=== PATIENT | male | born 1970 | race Hispanic/Latino ===

== ENCOUNTER 2018-02-08 15:05 | Observation (INO) | payer MEDICARE, OTHER ==
[~2018-02-08] VITALS: Ht 162.6 cm; Wt 215.0 kg
[2018-02-08 16:20] LABS: EOSINOPHILS % (AUTO) 0.7 % (0.0-8.0); HEMATOCRIT 43.5 % (42-54); LYMPHOCYTES % (AUTO) 22.8 % (21.0-51.0); MEAN CORPUSCULAR HEMOGLOBIN 28.4 pg (27.0-33.0); MEAN CORPUSCULAR HGB CONC 34.3 g/dL (32.0-36.0); MEAN CORPUSCULAR VOLUME 82.7 fL (79-99); MONOCYTES % (AUTO) 8.3 % (3.0-13.0); NEUTROPHILS % (AUTO) 67.2 % (40.0-77.0); NUCLEATED RED BLOOD CELLS 0.1 % (0.0-0.19); PLATELET COUNT (AUTO) 230 K/uL (130-400); RED BLOOD CELL COUNT(AUTO) 5.26 MIL/uL (4.50-6.20); RED CELL DISTRIBUTION WIDTH 13.5 % (11.0-15.5); WHITE BLOOD COUNT (AUTO) 8.3 K/uL (4.8-10.8)
[2018-02-08 16:34] LABS: CREATININE 0.7 mg/dL (0.5-1.5)
[2018-02-08 16:35] LABS: INR 1.01 (0.85-1.15); PARTIAL THROMBOPLASTIN TIME 27.8 SEC (26.3-35.5); PROTHROMBIN TIME 10.6 SEC (9.6-11.6)
[2018-02-08 16:42] LABS: ALBUMIN 3.6 g/dL (3.5-5.0); BILIRUBIN,TOTAL 0.8 mg/dL (0.2-1.0); TOTAL PROTEIN, SERUM 7.4 g/dL (6.0-8.3)
[2018-02-08] MEDS ORDERED: ASPIRIN 325 MG TABLET ONE (18:44)
[2018-02-08] MEDS ORDERED: DiphenhydrAMINE HCL 50 MG/ML VIAL ONE (20:40)
[2018-02-09 02:54] VITALS: BP 150/97
[2018-02-09 06:08] LABS: HEMATOCRIT 41.3 % (42-54); MEAN CORPUSCULAR HEMOGLOBIN 28.4 pg (27.0-33.0); MEAN CORPUSCULAR HGB CONC 34.5 g/dL (32.0-36.0); MEAN CORPUSCULAR VOLUME 82.3 fL (79-99); NUCLEATED RED BLOOD CELLS 0.1 % (0.0-0.19); PLATELET COUNT (AUTO) 233 K/uL (130-400); RED BLOOD CELL COUNT(AUTO) 5.01 MIL/uL (4.50-6.20); RED CELL DISTRIBUTION WIDTH 13.6 % (11.0-15.5); WHITE BLOOD COUNT (AUTO) 10.6 K/uL (4.8-10.8)
[2018-02-09 06:16] LABS: INR 1.04 (0.85-1.15); PROTHROMBIN TIME 10.9 SEC (9.6-11.6)
[2018-02-09 06:27] LABS: CREATININE 0.9 mg/dL (0.5-1.5); POTASSIUM 4.2 mmol/L (3.5-5.1)
[2018-02-09 06:30] LABS: HEMOGLOBIN A1C 6.1 % (4.0-6.0)
[2018-02-09 07:34] LABS: BASOPHILS % (MANUAL) 1 % (0-2); EOSINOPHILS % (MANUAL) 1 % (1-6); LYMPHOCYTES % (MANUAL) 33 % (22-44); MONOCYTES % (MANUAL) 8 % (2-9); REACTIVE LYMPHOCYTES 5 % (0-0); SEGMENTED NEUTROPHILS % 52 % (40-70)
[2018-02-09 07:35] LABS: MAN.DIFF COMMENT-IMPRESSION MANUAL DIFFERENTIAL; PLATELET MORPHOLOGY COMMENT ADEQUATE
[2018-02-09 08:00] VITALS: BP 133/75
[2018-02-09] MEDS ORDERED: ASPIRIN 81MG TAB.CHEW PO SCH (09:00)
--- NOTE | 2018-02-09 10:22 | NUR ---
BEDSIDE SWALLOW STUDY COMPLETE. -S/S OF ASPIRATION OBSERVED. RECOMMEND REGULAR DIET WITH THIN LIQUIDS. PATIENT INFORMATION: PATIENT IS A 48 YEAR OLD, MALE REFERRED FOR A BEDSIDE SWALLOW EVALUATION SECONDARY TO A DIAGNOSIS OF TIA. PATIENT ADMITTED TO HOSPITAL WITH DIAGNOSIS OF TIA. PATIENT ALERT AND COOPERATIVE DURING EVALUATION. EVALUATION: PATIENT'S SWALLOW FUNCTION AND EFFICIENCY ARE WITHIN FUNCTIONAL LIMITS. NO SIGNS/SYMPTOMS OF ASPIRATION WERE OBSERVED DURING EVALUATION. PATIENT PRESENTS WITH ADEQUATE ORAL STRENGTH AND COORDINATION, TIMELY PHARYNGEAL RESPONSE TIME, GOOD LARYNGEAL ELEVATION/EXCURSION, AND ADEQUATE AIRWAY PROTECTION. RECOMMENDATIONS: 1. REGULAR DIET 2. THIN LIQUIDS G-CODES: [id number] Addendum: 02/09/[address] [facility] Amended: Links added.
--- NOTE | 2018-02-09 11:11 | NUR ---
SPEECH-LANGUAGE EVALUATION COMPLETE. PATIENT WITH FUNCTIONAL SPEECH AND LANGUAGE SKILLS COMMENSURATE WITH PRE-ADMISSION STATUS. PATIENT INFORMATION: PATIENT IS A 48 YEAR OLD MALE REFERRED FOR A SPEECH AND LANGUAGE EVALUATION SECONDARY TO A DIAGNOSIS OF TIA. PER PATIENT, HE HAD NUMBNESS ON RIGHT SIDE OF FACE WITH BURNING SENSATION RADIATING TOWARDS HIS EYE AND LOSS OF MOTOR FUNCTION WITH SLURRED SPEECH. PATIENT REPORTS SYMPTOMS SUBSIDED WITHIN 4 HOURS OF ONSET ON 02/08/2018. EVALUATION: PATIENT PRESENTS WITH FUNCTIONAL SPEECH AND LANGUAGE SKILLS COMMENSURATE WITH PRE-ADMISSION STATUS. PATIENT IS AAOX3 AND ABLE TO ANSWER QUESTIONS APPROPRIATELY. PATIENT'S SPEECH IS 100% INTELLIGIBLE AND ABLE TO RELAY INFORMATION TO CAREGIVERS/COMMUNICATION PARTNERS. RECOMMENDATIONS: 1. PATIENT PRESENTS WITH FUNCTIONAL SPEECH-LANGUAGE SKILLS, AT THIS TIME. RESULTS OF EVALUATION WERE REVIEWED WITH PATIENT. PATIENT VERBALLY AGREED WITH RECOMMENDATIONS. PLAN AND CARE COORDINATED WITH NURSEMIKEY. G-CODES: [id number] Addendum: 02/09/[address] ANTHONY MALDONADO Amended: Links added.
[2018-02-09 12:00] VITALS: BP 160/89
[2018-02-09 16:00] VITALS: BP 128/79
[2018-02-09] MEDS ORDERED: ACETAMINOPHEN 325 MG TAB PO PRN ×2 (17:15)
[2018-02-09] MEDS ORDERED: HYDROCODONE/ACETAMINOPHEN 5/325 MG TAB PO PRN (17:15)
[2018-02-09 19:33] VITALS: BP 150/89
[2018-02-09 23:42] VITALS: BP 130/78
[2018-02-10 03:28] VITALS: BP 139/96
[2018-02-10 05:55] LABS: MEAN CORPUSCULAR HEMOGLOBIN 28.9 pg (27.0-33.0); MEAN CORPUSCULAR HGB CONC 34.9 g/dL (32.0-36.0); MEAN CORPUSCULAR VOLUME 82.6 fL (79-99); NUCLEATED RED BLOOD CELLS 0.1 % (0.0-0.19); PLATELET COUNT (AUTO) 245 K/uL (130-400); RED BLOOD CELL COUNT(AUTO) 4.96 MIL/uL (4.50-6.20); RED CELL DISTRIBUTION WIDTH 13.6 % (11.0-15.5); WHITE BLOOD COUNT (AUTO) 8.6 K/uL (4.8-10.8)
[2018-02-10 06:05] LABS: CREATININE 0.9 mg/dL (0.5-1.5); POTASSIUM 3.9 mmol/L (3.5-5.1)
[2018-02-10 08:00] VITALS: BP 163/87
[2018-02-10] MEDS ORDERED: ASPIRIN 325 MG TABLET ONE (10:58)
[2018-02-10] MEDS: ENOXAPARIN SODIUM 40 MG/0.4 ML SYRINGE SQ SCH (11:14)
[2018-02-10 12:00] VITALS: BP 146/87
[2018-02-10 16:00] VITALS: BP 158/88
[2018-02-10 19:39] VITALS: BP 144/70
[2018-02-10 23:30] VITALS: BP 130/83
[2018-02-11 03:56] VITALS: BP 131/67
[2018-02-11 07:30] VITALS: BP 135/76
[2018-02-11] MEDS ORDERED: ASPIRIN 325 MG TABLET PO SCH (09:00)
[2018-02-11] MEDS: ENOXAPARIN SODIUM 40 MG/0.4 ML SYRINGE SQ SCH (09:11)
[2018-02-11 11:00] VITALS: BP 130/83
[2018-02-11] MEDS ORDERED: ATOR40TA69 PO (12:35)
[2018-02-11] MEDS ORDERED: HYDR25TA PO (12:35)
[2018-02-11] MEDS ORDERED: ASPI-1005 PO (12:35)
[2018-02-11] MEDS ORDERED: ATORVASTATIN CALCIUM 20 MG TABLET PO SCH (21:00)
[2018-02-12] MEDS ORDERED: ASPIRIN 81MG TAB.CHEW PO SCH (09:00)
[2018-02-12] MEDS ORDERED: HYDROCHLOROTHIAZIDE 25 MG TABLET PO SCH (09:00)
== END 2018-02-11 16:25 | disposition home or self-care (01) ==
LOC: EDH 15:05 → EDHIP 23:36 → 4CH 02-09 01:58
PROVIDERS: ADMIT Internal Medicine; ATTEND Internal Medicine
DX: G45.9 Transient cerebral ischemic attack, unspecified (principal); G47.33 Obstructive sleep apnea (adult) (pediatric); R60.0 Localized edema; E66.01 Morbid (severe) obesity due to excess calories; Z68.45 Body mass index [BMI] 70 or greater, adult; E78.5 Hyperlipidemia, unspecified; G81.94 Hemiplegia, unspecified affecting left nondominant side; Z79.899 Other long term (current) drug therapy
CPT/HCPCS: G9162; G9163; G9164; 36415; 70450; 70496; 70498; 71045; 80048; 80053; 80061; 83036; 85025; 85027; 85610; 85730; 92522; 92610; 93005; 93306; 93970; 94660; 96372; G0378; J1200; J1650

== ENCOUNTER → 2022-05-14 | Outpatient (CLI) | payer OTHER, MEDICARE ==
[~2022-05-14] MED LIST: ASPI-1005 PO; ATOR40TA69 PO; HYDR25TA PO
== END | disposition home or self-care (01) ==
LOC: RAH 09:38
PROVIDERS: ATTEND Internal Medicine
DX: M75.102 Unspecified rotator cuff tear or rupture of left shoulder, not specified as traumatic (principal); M12.812 Other specific arthropathies, not elsewhere classified, left shoulder; R60.0 Localized edema
CPT/HCPCS: 73221

== ENCOUNTER → 2022-07-07 | Outpatient (CLI) | payer OTHER | END | disposition home or self-care (01) | LOC: RAH 07:46 | PROVIDERS: ATTEND Internal Medicine Cardiovascular Disease | DX: Z13.6 Encounter for screening for cardiovascular disorders (principal); R93.1 Abnormal findings on diagnostic imaging of heart and coronary circulation | CPT/HCPCS: 75571 ==

== ENCOUNTER → 2022-09-08 | Outpatient (CLI) | payer OTHER ==
[~2022-09-08] MED LIST changes: +REGADENOSON 0.4 MG/5 ML PF SYG IVP ONE
== END | disposition home or self-care (01) ==
LOC: SHCH 07:49
PROVIDERS: ATTEND Internal Medicine Cardiovascular Disease
DX: I25.119 Atherosclerotic heart disease of native coronary artery with unspecified angina pectoris (principal); R06.09 Other forms of dyspnea; R00.2 Palpitations; R07.9 Chest pain, unspecified
CPT/HCPCS: 78452; 96374; 93017; J2785; A9500 ×2

== ENCOUNTER 2023-05-03 08:38 | Observation (INO) | payer OTHER, MEDICARE ==
[2023-04-29 12:14] LABS: BASOPHILS # (AUTO) 0.06 K/uL (0.00-0.20); EOSINOPHILS # (AUTO) 0.02 K/uL (0.00-0.70); EOSINOPHILS % (AUTO) 0.3 % (0.0-8.0); HEMATOCRIT 42.2 % (42-54); IMMATURE GRANULOCYTE ABSOLUTE 0.03 K/uL (0-1); LYMPHOCYTES # (AUTO) 1.8 K/uL (1.0-4.8); LYMPHOCYTES % (AUTO) 29.6 % (21.0-51.0); MEAN CORPUSCULAR HEMOGLOBIN 28.7 pg (27.0-33.0); MEAN CORPUSCULAR HGB CONC 32.9 g/dL (32.0-36.0); MEAN CORPUSCULAR VOLUME 87.2 fL (79-99); MONOCYTES # (AUTO) 0.5 K/uL (0.1-1.0); MONOCYTES % (AUTO) 8.5 % (3.0-13.0); NEUTROPHILS # (AUTO) 3.6 K/uL (1.8-7.7); NEUTROPHILS % (AUTO) 60.1 % (40.0-77.0); PLATELET COUNT (AUTO) 233 K/uL (130-400); RED BLOOD CELL COUNT(AUTO) 4.84 MIL/uL (4.50-6.20); RED CELL DISTRIBUTION WIDTH 13.8 % (11.0-15.5)
[2023-04-29 12:19] VITALS: BP 142/74; PULSE 65; RESP 18
[2023-04-29 12:21] LABS: CREATININE 0.9 mg/dL (0.5-1.3); POTASSIUM 5.1 mmol/L (3.5-5.1)
[~2023-05-03] VITALS: Ht 160 cm; Wt 115.6 kg
[2023-05-03] VITALS (28 sets, daily range): BP systolic 108–136; BP diastolic 60–80; PULSE 60–80; RESP 15–19; O2SAT 96
[~2023-05-03 08:38] MED LIST changes: -ASPI-1005 PO; +ATOR10TA69 PO; -ATOR40TA69 PO; +BUPIVACAINE/PF 0.5% 30ML VIAL ONE; +ESOM20CA39 PO; -HYDR25TA PO; -REGADENOSON 0.4 MG/5 ML PF SYG IVP ONE; +SULF1TAB42 PO
[2023-05-03] MEDS: LACTATED RINGERS 1000ML 1,000 ML IV ONE (09:56)
[2023-05-03] MEDS: CEFAZOLIN SODIUM 2 GM VIAL ONE (09:56)
[2023-05-03] MEDS: CEFAZOLIN SODIUM 1 GM VIAL ONE (09:56)
[2023-05-03] MEDS ORDERED: ROCURONIUM BROMIDE 10MG/1ML 5ML VL ONE (10:00)
[2023-05-03] MEDS ORDERED: LIDOCAINE PF 100MG/5ML (2%) SYRINGE 5ML ONE (10:00)
[2023-05-03] MEDS ORDERED: SUCCINYLCHOLINE CHLORIDE 20 MG/ML 10 ML VIAL ONE (10:00)
[2023-05-03] MEDS ORDERED: PROPOFOL 10 MG/ML 20ML VIAL IV ONE ×2 (10:00→10:57)
[2023-05-03] MEDS ORDERED: MIDAZOLAM HCL 1 MG/ML 2ML VIAL ONE (10:00)
[2023-05-03] MEDS ORDERED: FENTANYL CITRATE PF 50 MCG/1 ML 2ML VIAL ONE ×2 (10:01→10:58)
[2023-05-03] MEDS: CEFAZOLIN SODIUM 3 GM VIAL IVPB ONE (10:10)
[2023-05-03] MEDS: LACTATED RINGERS 1000ML 1,000 ML IV SCH (12:00)
[2023-05-03] MEDS ORDERED: INSULIN HUMULIN R 100 UNIT/ML 3ML SQ PRN (12:00)
[2023-05-03] MEDS ORDERED: MORPHINE 2 MG SYG IV PRN (12:00)
[2023-05-03] MEDS ORDERED: ONDANSETRON 4MG INJ IVP PRN (12:00)
[2023-05-03] MEDS ORDERED: CEFAZOLIN SODIUM 2 GM in 0.9%NACL 50ML 50 ML IV SCH (12:00)
[2023-05-03] MEDS ORDERED: MORPHINE 4 MG SYG IV PRN ×2 (12:00)
[2023-05-03] MEDS ORDERED: LACTATED RINGERS 1000ML 1,000 ML IV SCH (12:00)
[2023-05-03] MEDS ORDERED: KETOROLAC 30MG VIAL (30MG/ML) IVP PRN (12:00)
[2023-05-03] MEDS ORDERED: ROPIVACAINE 0.5% 5MG/ML 30ML ONE (12:26)
[2023-05-03] MEDS ORDERED: NEOSTIGMINE METHYLSULFATE 1MG/ML IV ONE (13:03)
[2023-05-03] MEDS ORDERED: GLYCOPYRROLATE 0.2 MG/ML 5 ML VIAL ONE (13:03)
[2023-05-03] MEDS: MEPERIDINE-PF 25 MG/ML SYG ONE (13:28)
[2023-05-03] MEDS: FAMOTIDINE 20MG VIAL IV ONE (14:04)
[2023-05-03] MEDS: KETOROLAC 30MG VIAL (30MG/ML) IVP PRN (15:41)
[2023-05-03] MEDS: CEFAZOLIN SODIUM 2 GM VIAL IVPB SCH (15:41)
[2023-05-03] MEDS: ONDANSETRON 4MG INJ IVP PRN (20:23)
[2023-05-03] MEDS: MORPHINE 2 MG SYG IV PRN (20:32)
[2023-05-04] VITALS (7 sets, daily range): BP systolic 107–142; BP diastolic 63–77; PULSE 61–86; RESP 18–20; O2SAT 96–97
[2023-05-04 04:53] LABS: BASOPHILS # (AUTO) 0.05 K/uL (0.00-0.20); BASOPHILS % (AUTO) 0.6 % (0.0-5.0); EOSINOPHILS # (AUTO) 0.01 K/uL (0.00-0.70); EOSINOPHILS % (AUTO) 0.1 % (0.0-8.0); IMMATURE GRANULOCYTE ABSOLUTE 0.02 K/uL (0-1); LYMPHOCYTES # (AUTO) 1.6 K/uL (1.0-4.8); LYMPHOCYTES % (AUTO) 17.7 % (21.0-51.0); MEAN CORPUSCULAR HEMOGLOBIN 28.2 pg (27.0-33.0); MEAN CORPUSCULAR HGB CONC 32.5 g/dL (32.0-36.0); MEAN CORPUSCULAR VOLUME 86.7 fL (79-99); MONOCYTES # (AUTO) 0.9 K/uL (0.1-1.0); MONOCYTES % (AUTO) 10.4 % (3.0-13.0); NEUTROPHILS # (AUTO) 6.3 K/uL (1.8-7.7); PLATELET COUNT (AUTO) 221 K/uL (130-400); RED BLOOD CELL COUNT(AUTO) 4.15 MIL/uL (4.50-6.20); RED CELL DISTRIBUTION WIDTH 13.9 % (11.0-15.5); WHITE BLOOD COUNT (AUTO) 8.8 K/uL (4.8-10.8)
[2023-05-04 07:41] LABS: ALBUMIN 2.9 g/dL (3.5-5.0); BILIRUBIN,TOTAL 1.9 mg/dL (0.2-1.0); CREATININE 0.9 mg/dL (0.5-1.3); POTASSIUM 4.1 mmol/L (3.5-5.1); TOTAL PROTEIN, SERUM 5.8 g/dL (6.0-8.3)
[2023-05-04] MEDS: PANTOPRAZOLE 40 MG TAB DR PO SCH (09:07)
[2023-05-05] VITALS: BP 108/60; PULSE 74; RESP 16
[2023-05-05 04:00] VITALS: BP 115/68; PULSE 76; RESP 18
[2023-05-05 08:00] VITALS: O2SAT 97
[2023-05-05 12:00] VITALS: BP 143/74; PULSE 89; RESP 20
== END 2023-05-05 16:30 | disposition home or self-care (01) ==
LOC: DAH 08:38 → DAHIP 08:39 → DAH 08:39 → 3BH 14:30
PROVIDERS: ADMIT Surgery; ATTEND Surgery
DX: M79.3 Panniculitis, unspecified (principal); L30.4 Erythema intertrigo; I10 Essential (primary) hypertension; Z79.82 Long term (current) use of aspirin; Z88.8 Allergy status to other drugs, medicaments and biological substances; Z98.84 Bariatric surgery status; Z79.899 Other long term (current) drug therapy
CPT/HCPCS: 80048; 85025 ×2; 36415 ×2; 15830; 96365; 96366; 96375; 82948; 96376; 80053; 97161; 97116 ×2; 97530 ×3; A6260; G0378 ×48; A4663; J7030; J7120 ×2; A4452; A4344; J0690 ×5; J3490 ×3; J3010 ×2; J0330; J2270; J2001; J2250; J2704 ×2; J2405 ×2; J1885 ×4; J2710; J0665; J2175; J2795; A4649 ×2; A4930; A4215; A4223; A4222; A4221; A4600

== ENCOUNTER → 2024-01-25 | Outpatient (CLI) | payer OTHER, MEDICARE ==
[~2024-01-25] MED LIST changes: -BUPIVACAINE/PF 0.5% 30ML VIAL ONE; -ESOM20CA39 PO; +ESOM20CA51 PO; -SULF1TAB42 PO
--- NOTE | 2024-01-25 15:59 | HMCIMG ---
US SOFT TISSUE GROIN REASON: rlq pain/groin pain. COMPARISON: None TECHNIQUE: Right groin ultrasound study was performed. FINDINGS: Soft tissue mass is seen in the right groin measuring 4.2 x 0.6 x 1.1 cm may be related to enlarged lymph nodes. There are also multiple lymph nodes seen with the largest measuring 2.5 x 0.7 x 1.2 cm. IMPRESSION: Findings consistent with right inguinal adenopathy.
== END | disposition home or self-care (01) ==
LOC: RAH 11:19
PROVIDERS: ATTEND Surgery
DX: R10.813 Right lower quadrant abdominal tenderness (principal)
CPT/HCPCS: 76882

== ENCOUNTER → 2024-10-20 | Outpatient (CLI) | payer OTHER, MEDICAID ==
--- NOTE | 2024-10-20 10:54 | HMCIMG ---
Exam: Urinary bladder ultrasound performed on 10/20/2024. Indication: Post void dribbling. Technique: Real-time ultrasound of urinary bladder was performed with grayscale and color Doppler assessment. [employer] sonographic images were saved by the engraving patternmaker for review. Comparison: No previous ultrasound of the urinary bladder is available for comparison at this institution. Findings: The urinary bladder has a normal appearance. Urinary bladder wall thickness appears to be normal. Measuring 0.4 cm. No urinary bladder wall thickening, calculus, or mass is identified. The estimated prevoid urine volume is 43 mL. The post void urinary bladder residual is 14 mL. Prostate measures 2.8 x 3.3 x 3.0 cm the total volume is 19.5 cc Impression: Prostate and urinary bladder ultrasound is within normal limits, as above.
== END | disposition home or self-care (01) ==
LOC: RAH 09:59
PROVIDERS: ATTEND Internal Medicine
DX: N39.43 Post-void dribbling (principal); N39.41 Urge incontinence
CPT/HCPCS: 76857